=== PATIENT | female | born 1995 | race Caucasian/White ===

== ENCOUNTER 2017-05-19 21:39 | Emergency (ER) | payer OTHER ==
[~2017-05-19] VITALS: Ht 162.6 cm; Wt 103.4 kg
[~2017-05-19 21:39] MED LIST: SULF1TAB24 PO
[2017-05-19 21:50] VITALS: BP 125/58
[2017-05-19 22:12] LABS: BILIRUBIN,URINE NEGATIVE (NEG); GLUCOSE,URINE NEGATIVE (NEG); NITRITE,URINE POSITIVE (NEG); PH,URINE 5.5; PROTEIN,URINE NEGATIVE (NEG-TRACE); UROBILINOGEN,URINE 0.2 mg/dL (0.2 mg/dL)
[2017-05-19 22:17] LABS: BACTERIA,URINE MODERATE /HPF (0-FEW); RBC,URINE 0 /HPF (0-2); SQUAMOUS EPITHELIAL CELL,UR MOD /LPF
[2017-05-19] MEDS ORDERED: NITR100C62 PO (22:28)
--- NOTE | 2017-05-19 22:28 | PHYS DOC ---
Past Medical History Past Medical History: Other Additional Past Medical Histor: alpha 1 liver and lung disease Past Surgical History: Tonsillectomy Alcohol Use: None Drug Use: None Adult General Chief Complaint Chief Complaint: LOWER EXTREMITY SWELLING HPI HPI Patient is a 21 year old female presenting to the emergency department for evaluation of bilateral lower extremity edema that she has noted more significant over the past 4-5 days and he thinks the left leg is slightly more swollen. She says that she has had some burning on urination as well but no abdominal pain fevers chills nausea vomiting back pain vaginal bleeding or vaginal discharge. She is approximately 18 weeks . She says that she is tried elevating her legs with minimal relief. She is in no obvious distress with normal vital signs. Review of Systems Review of Systems Constitutional: Denies fever or chills [] Cardiovascular: No additional information not addressed in HPI [] GI: Denies abdominal pain, nausea, vomiting, bloody stools or diarrhea [] : + dysuria Musculoskeletal: Denies back pain or joint pain [] Integument: Denies rash or skin lesions [] Neurologic: Denies headache, focal weakness or sensory changes [] Allergies Allergies Allergies Coded Allergies Type Severity Reaction Last Updated Verified No Known Drug Allergies 10/04/16 No Physical Exam Physical Exam Constitutional: Well developed, well nourished, no acute distress, non-toxic appearance. [] Cardiovascular:Heart rate regular rhythm, no murmur [] Lungs & Thorax: Bilateral breath sounds clear to auscultation [] Abdomen: Bowel sounds normal, soft, no tenderness, no masses, no pulsatile masses. [] Skin: Warm, dry, no erythema, no rash. [] Back: No tenderness, no CVA tenderness. [] Extremities: No tenderness, no cyanosis, no clubbing, ROM intact, 1+ edema bilaterally [] Neurologic: Alert and oriented X 3, normal motor function, normal sensory function, no focal deficits noted. [] Current Patient Data Vital Signs Vital Signs Date Time Temp Pulse Resp B/P (MAP) Pulse Ox O2 Delivery O2 Flow Rate FiO2 05/19/17 21:50 98.4 99 16 125/58 (80) 97 Room Air 98.4 Lab Values Laboratory Tests Test 05/19/17 22:05 Urine Collection Type Unknown Urine Color Yellow Urine Clarity Cloudy Urine pH 5.5 Urine Specific [place] 1.025 Urine Protein Negative mg/dL (NEG-TRACE) Urine Glucose (UA) Negative mg/dL (NEG) Urine Ketones (Stick) Negative mg/dL (NEG) Urine Blood Negative (NEG) Urine Nitrite Positive (NEG) Urine Bilirubin Negative (NEG) Urine Urobilinogen Dipstick 0.2 mg/dL (0.2 mg/dL) Urine Leukocyte Esterase Small (NEG) Urine RBC 0 /HPF (0-2) Urine WBC 5-10 /HPF (0-4) Urine Squamous Epithelial Cells Mod /LPF Urine Bacteria Moderate /HPF (0-FEW) Urine Mucus Marked /LPF EKG EKG [] Radiology/Procedures Radiology/Procedures Ultrasound left lower extremity Indication:lle swelling
pt is 18 weeks

no evidence of dvt Technique: Multiple real-time grayscale images were obtained over the left lower extremity with use of color Doppler imaging. Static images were submitted for interpretation. Findings: There is no evidence for deep venous thrombosis. There is normal color fill-in on Doppler images. There is also normal response to compression and augmentation deep venous system. Spectral analysis is within normal limits. No evidence for mass or fluid collection. Impression: No evidence for deep venous thrombosis of the left lower extremity. Electronically signed by: Nathaniel Haji MD (05/19/2017 10:41 PM) [facility] DICTATED and SIGNED BY: NATHANIEL HAJI MD DATE: 05/19/172238 Course & Med Decision Making Course & Med Decision Making Patient with urinary tract infection so be treated with Macrobid as an outpatient. For the edema she was told to continue elevating her legs. There is no protein in her urine. Patient aware and agreeable with plan for discharge and verbalized understanding of the need for short-term follow-up in the strict ER return precautions discussed including worsening pain fevers vomiting or other general concerns. Dragon Disclaimer Dragon Disclaimer This electronic medical record was generated, in whole or in part, using a voice recognition dictation system. Departure Departure Impression: Primary Impression: UTI (urinary tract infection) Additional Impression: Lower extremity edema Disposition: HOME, SELF-CARE Condition: GOOD Referrals: NICOLAS TAYLOR MD (PCP) Patient Instructions: Peripheral Edema, Urinary Tract Infection Scripts Nitrofurantoin Monohyd/M-Cryst (MACROBID 100 MG CAPSULE) 100 Mg Capsule 1 CAP PO BID, #14 CAP Prov: MICHOACANO REYNOLDS DO 05/19/17 Problem Qualifiers Primary Impression: UTI (urinary tract infection) Urinary tract infection type: acute cystitis Hematuria presence: without hematuria Qualified Codes: N30.00 - Acute cystitis without hematuria MICHOACANO REYNOLDS DO May 19, 2017 22:28
--- NOTE | 2017-05-19 22:44 | RAD ---
Ultrasound left lower extremity Indication:lle swelling
pt is 18 weeks

no evidence of dvt Technique: Multiple real-time grayscale images were obtained over the left lower extremity with use of color Doppler imaging. Static images were submitted for interpretation. Findings: There is no evidence for deep venous thrombosis. There is normal color fill-in on Doppler images. There is also normal response to compression and augmentation deep venous system. Spectral analysis is within normal limits. No evidence for mass or fluid collection. Impression: No evidence for deep venous thrombosis of the left lower extremity. Electronically signed by: Sabas Mcmullen MD (05/19/2017 10:41 PM) [facility]
== END 2017-05-19 23:04 | disposition home or self-care (01) ==
LOC: ER 21:39
DX: O23.12 Infections of bladder in pregnancy, second trimester (principal); O12.02 Gestational edema, second trimester; Z3A.18 18 weeks gestation of pregnancy
CPT/HCPCS: 81001; 87086; 87186; 93971; 99285-25

== ENCOUNTER 2017-06-16 07:50 | Emergency (ER) | payer OTHER ==
[~2017-06-16] VITALS: Ht 162.6 cm; Wt 103.4 kg
[~2017-06-16 07:50] MED LIST changes: +NITR100C62 PO
[2017-06-16 08:10] VITALS: BP 116/65
[2017-06-16 08:48] LABS: BILIRUBIN,URINE NEGATIVE (NEG); GLUCOSE,URINE NEGATIVE (NEG); NITRITE,URINE NEGATIVE (NEG); PH,URINE 6.5; PROTEIN,URINE NEGATIVE (NEG-TRACE); UROBILINOGEN,URINE 0.2 mg/dL (0.2 mg/dL)
[2017-06-16 09:03] LABS: BACTERIA,URINE MANY /HPF (0-FEW); RBC,URINE OCC /HPF (0-2); SQUAMOUS EPITHELIAL CELL,UR MANY /LPF
--- NOTE | 2017-06-16 09:22 | PHYS DOC ---
Past Medical History Past Medical History: Other Additional Past Medical Histor: alpha 1 liver and lung disease Past Surgical History: Tonsillectomy Alcohol Use: None Drug Use: None Adult General Chief Complaint Chief Complaint: VAGINAL PROBLEM HPI HPI Patient is a 21 year old female resents to the emergency department complaining of vaginal itching and irritation and burning. Patient is 21 weeks . She is a 8 para 1 AB 6. Patient denies any urgency frequency or any urinary symptoms. She does state however she was vaginal itching, and burning. Patient also has been using over the counter medication for yeast with no improvement. Review of Systems Review of Systems Constitutional: Denies fever or chills [] Eyes: Denies change in visual acuity, redness, or eye pain [] HENT: Denies nasal congestion or sore throat [] Respiratory: Denies cough or shortness of breath [] Cardiovascular: No additional information not addressed in HPI [] GI: Denies abdominal pain, nausea, vomiting, bloody stools or diarrhea [] : Denies dysuria or hematuria. Vaginal itching and burning Musculoskeletal: Denies back pain or joint pain [] Integument: Denies rash or skin lesions [] Neurologic: Denies headache, focal weakness or sensory changes [] Endocrine: Denies polyuria or polydipsia [] Allergies Allergies Allergies Coded Allergies Type Severity Reaction Last Updated Verified No Known Drug Allergies 10/04/16 No Physical Exam Physical Exam Constitutional: Well developed, well nourished, no acute distress, non-toxic appearance. [] HENT: Normocephalic, atraumatic, bilateral external ears normal, oropharynx moist, no oral exudates, nose normal. [] Eyes: PERRLA, EOMI, conjunctiva normal, no discharge. [] Neck: Normal range of motion, no tenderness, supple, no stridor. [] Cardiovascular:Heart rate regular rhythm, no murmur [] Lungs & Thorax: Bilateral breath sounds clear to auscultation [] Abdomen: Bowel sounds normal, soft, no tenderness, no masses, no pulsatile masses. [] Skin: Warm, dry, no erythema, no rash. [] Back: No tenderness Extremities: No tenderness, no cyanosis, no clubbing, ROM intact, no edema. [] Neurologic: Alert and oriented X 3, normal motor function, normal sensory function, no focal deficits noted. [] Psychologic: Affect normal, judgement normal, mood normal. [] Vaginal exam: speculum with white discharge noted, no odor noted. Patient with areas on the labia with blister type areas. Manual exam without CMT or adnexal tenderness. Current Patient Data Vital Signs Vital Signs Date Time Temp Pulse Resp B/P (MAP) Pulse Ox O2 Delivery O2 Flow Rate FiO2 06/16/17 08:10 98.2 89 16 116/65 (82) 95 Room Air 98.2 Lab Values Laboratory Tests Test 06/16/17 08:05 Urine Collection Type Void Urine Color Yellow Urine Clarity Cloudy Urine pH 6.5 Urine Specific [place] 1.025 Urine Protein Negative mg/dL (NEG-TRACE) Urine Glucose (UA) Negative mg/dL (NEG) Urine Ketones (Stick) Negative mg/dL (NEG) Urine Blood Negative (NEG) Urine Nitrite Negative (NEG) Urine Bilirubin Negative (NEG) Urine Urobilinogen Dipstick 0.2 mg/dL (0.2 mg/dL) Urine Leukocyte Esterase Moderate (NEG) Urine RBC Occ /HPF (0-2) Urine WBC 11-20 /HPF (0-4) Urine Squamous Epithelial Cells Many /LPF Urine Bacteria Many /HPF (0-FEW) Urine Mucus Marked /LPF Microbiology 06/16/17 Wet Prep - Final, Complete EKG EKG [] Radiology/Procedures Radiology/Procedures [] Course & Med Decision Making Course & Med Decision Making Pertinent Labs and Imaging studies reviewed. (See chart for details) Wet prep negative for yeast, UA positive for UTI. Patient will be placed on acyclovir and Keflex with recommendations to followup with [facility] in 3-5 days. Signs and symptoms to return back to emergency department as been provided. Also encourage patient to return to the emergency department with signs and symptoms of become worse. All questions were answered for the patient at the bedside. [] Dragon Disclaimer Dragon Disclaimer This electronic medical record was generated, in whole or in part, using a voice recognition dictation system. Departure Departure Impression: Primary Impression: UTI (urinary tract infection) in in second trimester Additional Impression: HSV infection Disposition: 02 TRANSFER T-[facility] Condition: STABLE Referrals: NICOLAS TAYLOR MD (PCP) Patient Instructions: Herpes Labialis, Urinary Tract Infection, [id number] Additional Instructions: Activity as tolerated Medication as prescribed Drink plenty of fluids such as water and cranberry juice Avoid cranberry juice cocktail, carbonated beverages, citrus fruits, alcohol and caffeine as these are considered to irritants to the bladder Followup with [facility] in 3-5 days Scripts Cephalexin (KEFLEX) 500 Mg Capsule 1 CAP PO BID, #14 CAP Prov: MIHAI GARZA APRN 06/16/17 Acyclovir (ACYCLOVIR) 200 Mg Capsule 1 CAP PO 5XDAY, #50 CAP Prov: MIHAI GARZA APRN 06/16/17 Problem Qualifiers MIHAI GARZA APRN Jun 16, 2017 09:22
[2017-06-16] MEDS ORDERED: CEPH-264 PO (09:47)
[2017-06-16] MEDS ORDERED: ACYC200C PO (09:47)
== END 2017-06-16 09:55 | disposition home or self-care (01) ==
LOC: ER 07:50
DX: O23.42 Unspecified infection of urinary tract in pregnancy, second trimester (principal); O98.512 Other viral diseases complicating pregnancy, second trimester; B00.9 Herpesviral infection, unspecified; Z3A.21 21 weeks gestation of pregnancy
CPT/HCPCS: 81001; 87086; 87491; 87591; 99284; Q0111